=== PATIENT | female | born 1955 | race Caucasian/White ===

== ENCOUNTER 2019-09-04 10:34 | Outpatient (CLI) | payer OTHER, SELFPAY ==
--- NOTE | ~2019-09-04 | MM_ITS ---
EXAMINATION: MM screening [facility] BI w charity HISTORY: Screening mammogram, family history of breast cancer in her mother. TECHNIQUE: Craniocaudal and mediolateral oblique 3-D tomosynthesis images were obtained and synthetic 2-D images were generated. CAD analysis was submitted and interpreted. COMPARISON: 07/03/2018, 12/13/2015, 09/03/2014 BREAST PARENCHYMAL COMPOSITION: There are scattered areas of fibroglandular density. FINDINGS: An intramammary lymph node is noted in the upper outer quadrant of the right breast. There is no evidence of suspicious mass, calcification, or architectural distortion to suggest malignancy i n either breast. There has been no suspicious interval change. IMPRESSION: 1. No mammographic evidence of malignancy. 2. Recommend routine screening mammography in one year. BI-RADS Category 2: Benign finding(s). Reviewed, dictated and finalized at location A. ESSIVE THERAPIST
== END 2019-09-04 10:35 | disposition home or self-care (01) ==
LOC: ANHIMG 10:47
PROVIDERS: PCP Family Medicine; Visit Provider Family Medicine
DX: Z12.31 Encounter for screening mammogram for malignant neoplasm of breast (principal)
CPT/HCPCS: 77063; 77067

== ENCOUNTER 2020-08-21 01:13 | Outpatient (CLI) | payer OTHER, SELFPAY ==
[2020-08-21 18:47] LABS: SARS-CoV-2 RNA PCR Negative
== END 2020-08-21 01:14 | disposition home or self-care (01) ==
LOC: ANHCOVIDDT 01:13
PROVIDERS: PCP Family Medicine; Visit Provider Internal Medicine Gastroenterology
DX: Z01.812 Encounter for preprocedural laboratory examination (principal); Z20.822 Contact with and (suspected) exposure to COVID-19
CPT/HCPCS: C9803; U0003; U0005

== ENCOUNTER 2020-08-24 01:18 | Day surgery (SDC) | payer OTHER, SELFPAY ==
[2020-08-18 14:23] VITALS: BMI 46.5
[2020-08-24 08:13] VITALS: BP 137/78; PULSE 78; RESP 18; TEMP 36.6; O2SAT 97; BMI 46.8
[2020-08-24] MEDS: LACTATED RINGERS 1,000 ML 150 ML IV CONT (08:29)
[2020-08-24 08:32] LABS: Glucose Point of Care 143 (65-105)
--- NOTE | 2020-08-24 09:13 | WPDANESEPPF ---
Anes - Initial Pre Proc Eval Procedure: Operation Date: 08/24/20 09:30 Proposed Procedures p Screening Colonoscopy - Eagle Pascual MD Date/Time: 08/24/20 09:13 Surgeon: Eagle Pascual MD Pre Op Diagnosis: Neoplasm Screening Patient Data Age: 64 Gender: F Height: 5 ft 4 in Weight: 123.8 kg Last Vital Signs Temp 97.9 F 08/24/20 08:13 Pulse 78 08/24/20 08:13 Resp 18 08/24/20 08:13 BP 137/78 08/24/20 08:13 Pulse Ox 97 08/24/20 08:13 Allergies Allergy/AdvReac Type Severity Reaction Status Date / Time ezetimibe Allergy Intermediate Rash Verified 08/24/20 08:11 iodine Allergy Intermediate Hives Verified 08/24/20 08:11 rosuvastatin Allergy Intermediate Heartburn Verified 08/24/20 08:11 Contrast Media Allergy Intermediate HIVES Uncoded 08/24/20 08:11 Home Medications Medication Instructions Recorded Confirmed Type blood sugar diagnostic #100 each 02/11/20 06/17/20 Rx coenzyme Q10 100 mg capsule 100 mg PO DAILY 02/12/20 08/18/20 History aspirin 81 mg tablet,delayed 81 mg PO DAILY #90 tablet 06/16/20 08/18/20 Rx release atenolol 25 mg tablet 25 mg PO DAILY #90 tablet 06/16/20 08/18/20 Rx atorvastatin 80 mg tablet 80 mg PO DAILY #90 tablet 06/16/20 08/18/20 Rx cetirizine 10 mg capsule 10 mg PO DAILY #90 cap 06/16/20 08/18/20 Rx ergocalciferol (vitamin D2) 1,250 1,250 mcg PO WEEKLY #12 cap 06/16/20 08/18/20 Rx mcg (50,000 unit) capsule febuxostat 40 mg tablet 40 mg PO DAILY #90 tablet 06/16/20 08/18/20 Rx pregabalin 75 mg capsule 75 mg PO BID #180 cap 06/16/20 08/18/20 Rx sitagliptin 100 mg-metformin ER 1 tablet PO QPM #90 tablet 06/16/20 08/18/20 Rx 1,000 mg tablet,extended [id number] mp sodium,potassium,mag sulfates 17.5 See Rx Instructions PO .COMPLEX 08/11/20 Rx gram-3.13 gram-1.6 gram oral soln #354 ml fluticasone propionate 2 spray NASAL DAILY PRN 08/18/20 08/18/20 History levothyroxine 112 mcg tablet 112 mcg PO DAILY #90 tablet 08/18/20 08/18/20 Rx tramadol 50 mg PO BID 08/18/20 08/18/20 History furosemide 40 mg tablet 20 mg PO .every other day #90 08/20/20 Rx tablet Laboratory Tests 08/24/20 08:28 POC Capillary Glucose 143 mg/dl H mg/dl (65-105) Patient hx anesthesia problems: none Family hx anesthesia problems: none [facility] Past Medical History Medical History (Updated 08/10/20 @ 11:55 by Debra Rangel RN) Allergies Arthritis Diabetes Headache History of osteomyelitis Hypertension IBS (irritable bowel syndrome) Kidney disease Surgical History Surgical History Acute carpal tunnel syndrome of left wrist Ankle osteomyelitis, left Carpal tunnel syndrome History of hysterectomy History of laminectomy History of total left knee replacement (TKR) History of total right knee replacement (TKR) Family History Family History Mother Family history of hyperthyroidism Other Cerebrovascular accident Diabetes mellitus Family history of arthritis Family history of cardiovascular disease Family history of congestive heart failure Family history of coronary artery disease Family history of glaucoma Family history of gout Family history of malignant neoplasm of male breast Family history of obesity Family history of thyroid disease Hypertension Social History Social History Smoking status: Never smoker Second hand tobacco smoke exposure: No Alcohol intake: never Substance use: never Substance use type: does not use Living arrangements: with family Gender identity (if verbalized by the patient): Female Spiritual care concerns: No Agree to blood products: Yes Anes - Eval Final PreProcedure Day of Procedure 08/24/20 09:13 Patient weight: morbidly obese Heart: regular rate and rhythm Lungs: clear to au
--- NOTE | 2020-08-24 09:35 | PM.HPGS ---
History of Present Illness History of Present Illness Consent: Risks, benefits, and alternatives have been discussed and questions answered. Patient agrees to proceed with procedure. Chief complaint: Neoplasm Screening Narrative: Alva Renteria is a 64 year old female here for first colonoscopy, had + cologuard Review of Systems Constitutional: Constitutional: Denies headache(s) and Denies weakness Eyes: Eyes: Denies blurry vision ENT: Reports Normal hearing present, Denies headache(s) and Denies neck pain Cardiovascular: Cardiovascular: Denies chest pain and Denies dyspnea Respiratory: Respiratory: Denies dyspnea Gastrointestinal: Gastrointestinal: Reports no additional gastrointestinal complaints Genitourinary: Genitourinary: Denies dysuria Musculoskeletal: Musculoskeletal: Denies neck pain Integumentary/Breasts: Skin/Breast: Denies dry skin Neurologic: Reports Normal hearing present, Denies headache(s) and Denies weakness Psychiatric: Psychiatric: Denies anxiety Endocrine: Endocrine: Denies change in body appearance Hematologic/Lymphatic: Hematologic/Lymphatic: Denies easy bleeding Allergic/Immunologic: Allergic/Immunologic: Denies urticaria PMFSH Past Medical History Medical History (Updated 08/10/20 @ 11:55 by Debra Rangel RN) Allergies Arthritis Diabetes Headache History of osteomyelitis Hypertension IBS (irritable bowel syndrome) Kidney disease Surgical History Surgical History Acute carpal tunnel syndrome of left wrist Ankle osteomyelitis, left Carpal tunnel syndrome History of hysterectomy History of laminectomy History of total left knee replacement (TKR) History of total right knee replacement (TKR) Family History Family History Mother Family history of hyperthyroidism Other Cerebrovascular accident Diabetes mellitus Family history of arthritis Family history of cardiovascular disease Family history of congestive heart failure Family history of coronary artery disease Family history of glaucoma Family history of gout Family history of malignant neoplasm of male breast Family history of obesity Family history of thyroid disease Hypertension Social History Social History Smoking status: Never smoker Second hand tobacco smoke exposure: No Alcohol intake: never Substance use: never Substance use type: does not use Living arrangements: with family Gender identity (if verbalized by the patient): Female Spiritual care concerns: No Agree to blood products: Yes Meds Home Medications and Allergies Home Medications Medication Instructions Recorded Confirmed Type blood sugar diagnostic #100 each 02/11/20 06/17/20 Rx coenzyme Q10 100 mg capsule 100 mg PO DAILY 02/12/20 08/18/20 History aspirin 81 mg tablet,delayed 81 mg PO DAILY #90 tablet 06/16/20 08/18/20 Rx release atenolol 25 mg tablet 25 mg PO DAILY #90 tablet 06/16/20 08/18/20 Rx atorvastatin 80 mg tablet 80 mg PO DAILY #90 tablet 06/16/20 08/18/20 Rx cetirizine 10 mg capsule 10 mg PO DAILY #90 cap 06/16/20 08/18/20 Rx ergocalciferol (vitamin D2) 1,250 1,250 mcg PO WEEKLY #12 cap 06/16/20 08/18/20 Rx mcg (50,000 unit) capsule febuxostat 40 mg tablet 40 mg PO DAILY #90 tablet 06/16/20 08/18/20 Rx pregabalin 75 mg capsule 75 mg PO BID #180 cap 06/16/20 08/18/20 Rx sitagliptin 100 mg-metformin ER 1 tablet PO QPM #90 tablet 06/16/20 08/18/20 Rx 1,000 mg tablet,extended [id number] mp sodium,potassium,mag sulfates 17.5 See Rx Instructions PO .COMPLEX 08/11/20 Rx gram-3.13 gram-1.6 gram oral soln #354 ml fluticasone propionate 2 spray NASAL DAILY PRN 08/18/20 08/18/20 History levothyroxine 112 mcg tablet 112 mcg PO DAILY #90 tablet 08/18/20 08/18/20 Rx tramadol 50 mg PO BID 08/18/20 08/18/20 Hist
[2020-08-24 09:57] VITALS: BP 95/51; PULSE 62; RESP 20; O2SAT 94
[2020-08-24 10:07] VITALS: BP 103/58; PULSE 68; RESP 18; O2SAT 95
[2020-08-24 10:17] VITALS: BP 97/65; PULSE 70; RESP 19; O2SAT 97
== END 2020-08-24 10:30 | disposition home or self-care (01) ==
PROVIDERS: PCP Family Medicine; Visit Provider Internal Medicine Gastroenterology
PROC: 0DJD8ZZ Inspection of Lower Intestinal Tract, Via Natural or Artificial Opening Endoscopic (ICD-10-PCS; CPT 45378; principal; 2020-08-24 09:30)
DX: Z12.11 Encounter for screening for malignant neoplasm of colon (principal); R19.5 Other fecal abnormalities; D12.3 Benign neoplasm of transverse colon; D12.4 Benign neoplasm of descending colon; D12.5 Benign neoplasm of sigmoid colon; K63.5 Polyp of colon; K64.8 Other hemorrhoids; E11.9 Type 2 diabetes mellitus without complications; I10 Essential (primary) hypertension; K58.9 Irritable bowel syndrome, unspecified; E66.01 Morbid (severe) obesity due to excess calories; Z68.42 Body mass index [BMI] 45.0-49.9, adult; Z79.82 Long term (current) use of aspirin; Z79.84 Long term (current) use of oral hypoglycemic drugs
CPT/HCPCS: 45385; 88305; J2704; J7120

== ENCOUNTER → 2020-10-11 13:48 | Outpatient (REF) | payer OTHER, SELFPAY | LOC: ANHLAB 13:48 | PROVIDERS: PCP Family Medicine; Visit Provider Nurse Practitioner | DX: L72.0 Epidermal cyst (principal) | CPT/HCPCS: 88304 ==

== ENCOUNTER 2020-12-06 09:33 | Outpatient (CLI) | payer MEDICARE, OTHER, SELFPAY ==
--- NOTE | ~2020-12-06 | MM_ITS ---
EXAMINATION: MM screening [facility] BI w charity HISTORY: Screening TECHNIQUE: Craniocaudal and mediolateral oblique 3-D tomosynthesis images were obtained and synthetic 2-D images were generated. CAD analysis was submitted and interpreted. COMPARISON: Comparison to multiple prior studies sequentially, with oldest reviewed study dated 01/2012. BREAST PARENCHYMAL COMPOSITION: There are scattered areas of fibroglandular density. FINDINGS: There is no evidence of suspicious mass, calcification, or architectural distortion to sugg est malignancy in either breast. There has been no suspicious interval change. IMPRESSION: 1. No mammographic evidence of malignancy. 2. Recommend routine screening mammography in one year. BI-RADS Category 1: Negative Reviewed, dictated and finalized at location A.
== END 2020-12-06 09:34 | disposition home or self-care (01) ==
LOC: ANHIMG 09:39
PROVIDERS: PCP Family Medicine; Visit Provider Family Medicine
DX: Z12.31 Encounter for screening mammogram for malignant neoplasm of breast (principal)
CPT/HCPCS: 77063; 77067

== ENCOUNTER 2021-01-04 11:07 | Outpatient (CLI) | payer MEDICARE, OTHER, SELFPAY ==
--- NOTE | ~2021-01-04 | XR_ITS ---
EXAMINATION: XR foot RT standing 2V, XR foot LT standing 2V DATE: 01/04/2021 11:30 (accession [id number]), 01/04/2021 11:31 (accession [id number]) INDICATION: Arthritis with abnormal neurologic findings in serum. TECHNIQUE: 1. Dorsoplantar and lateral views of the left foot were obtained. 2. Dorsoplantar and lateral views of the right foot were obtained. COMPARISON: 02/15/2016 FINDINGS: Mild bilateral hallux valgus and bunions with mild hypertrophic change at the medial heads of the annel ateral first metatarsals. There is also mild bilateral pes planus. Old healed fractures at the latera l bases of the left and right fifth metatarsals. No acute fractures. Mild to moderate polyarticular o steoarthritis involving multiple joints in the bilateral feet most prominent at the left subtalar and talonavicular joints, bilateral second tarsal metatarsal and bilateral first metatarsophalangeal naima nts. No periarticular erosions to suggest an inflammatory arthritis such as rheumatoid. Moderate-size d bilateral plantar calcaneal spurs and tiny bilateral Achilles calcaneal spurs. IMPRESSION: 1. Bilateral hallux valgus and pes planus with moderate polyarticular osteoarthritis at both feet. 2. Old healed avulsion fractures at the lateral base of the bilateral fifth metatarsals. No acute oss eous abnormality. Reviewed, dictated and finalized at location A. IMPRESSION: 1. Bilateral hallux valgus and pes planus with moderate polyarticular osteoarth ritis at both feet. 2. Old healed avulsion fractures at the lateral base of the bilateral fifth met atarsals. No acute osseous abnormality.
--- NOTE | ~2021-01-04 | XR_ITS ---
EXAMINATION: HAND-ALENA ARTHRITIS 3+VIEWS DATE: 01/04/2021 11:31 INDICATION: Arthritis at the bilateral hands with abnormal immunologic findings in serum. TECHNIQUE: Posteroanterior, lateral, and oblique views of the left and of the right hands as well as a ballcatchers view of both hands were obtained. COMPARISON: None. FINDINGS: Alignment is normal. No fracture. Relatively symmetric pattern of polyarticular osteoarthritis, moder ate severity at the first carpometacarpal joints, mild at multiple predominantly distal interphalange al joints and minimal at the bilateral triscaphe and several metacarpophalangeal joints. Small round lucent lesion with thin sclerotic margins at the bilateral ulnar styloid processes which could repres ent either degenerative subchondral cysts or chronic erosions. No erosions or significant joint space narrowing at the third carpophalangeal joints to elevate suspicion for rheumatoid arthritis. Soft ti ssues are unremarkable. IMPRESSION: 1. Symmetric pattern of polyarticular osteoarthritis of both hands, moderate severity carpometacarpal joints and mild at multiple predominantly distal interphalangeal joints. 2. Small chronic lytic lesions within sclerotic margins at the bilateral ulnar styloid processes whic h could represent other degenerative cystic change or chronic erosions in the setting of either an in flammatory or crystalline arthritis. Reviewed, dictated and finalized at location A. IMPRESSION: 1. Symmetric pattern of polyarticular osteoarthritis of both hands, moderate se verity carpometacarpal joints and mild at multiple predominantly distal interph alangeal joints. 2. Small chronic lytic lesions within sclerotic margins at the bilateral ulnar styloid processes which could represent other degenerative cystic change or chr onic erosions in the setting of either an inflammatory or crystalline arthritis .
== END 2021-01-04 11:08 | disposition home or self-care (01) ==
LOC: ANHIMG 11:16
PROVIDERS: PCP Family Medicine; Visit Provider Internal Medicine
DX: R76.8 Other specified abnormal immunological findings in serum (principal); M18.0 Bilateral primary osteoarthritis of first carpometacarpal joints; M19.042 Primary osteoarthritis, left hand; M19.041 Primary osteoarthritis, right hand; M21.072 Valgus deformity, not elsewhere classified, left ankle; M21.071 Valgus deformity, not elsewhere classified, right ankle; M21.42 Flat foot [pes planus] (acquired), left foot; M21.41 Flat foot [pes planus] (acquired), right foot
CPT/HCPCS: 73130; 73620

== ENCOUNTER 2022-03-15 10:06 | Outpatient (CLI) | payer MEDICARE, OTHER, SELFPAY ==
--- NOTE | ~2022-03-15 | MM_ITS ---
EXAMINATION: MM screening [facility] HISTORY: Screening mammogram, family history of breast cancer in her mother. TECHNIQUE: Craniocaudal and mediolateral oblique 3-D tomosynthesis images were obtained and synthetic 2-D images were generated. CAD analysis was submitted and interpreted. COMPARISON: 12/06/2020, 09/04/2019, 1120 BREAST PARENCHYMAL COMPOSITION: There are scattered areas of fibroglandular density. FINDINGS: An intramammary lymph node is again noted in the upper outer quadrant of the right breast. There is no suspicious mass, calcification, or architectural distortion to suggest malignancy in eith er breast. There has been no suspicious interval change. IMPRESSION: 1. No mammographic evidence of malignancy. 2. Recommend routine screening mammography in one year. BI-RADS Category 2: Benign finding(s). Reviewed, dictated and finalized at location A.
== END 2022-03-15 10:07 | disposition home or self-care (01) ==
PROVIDERS: PCP Family Medicine; Visit Provider Family Medicine
DX: Z12.31 Encounter for screening mammogram for malignant neoplasm of breast (principal)
CPT/HCPCS: 77063; 77067

== ENCOUNTER 2022-04-14 15:18 | Outpatient (CLI) | payer MEDICARE, OTHER, SELFPAY ==
--- NOTE | ~2022-04-14 | US_ITS ---
EXAMINATION: US renal BI DATE: 04/14/2022 15:59 INDICATION: Unspecified hematuria TECHNIQUE: Multiple ultrasound grayscale images of the kidneys were obtained. COMPARISON: 06/21/2018 FINDINGS: The right kidney measures 13.1 x 5.2 x 5.7 cm. The left kidney measures 9.1 x 4.3 x 6.6 cm. The kidne ys demonstrate normal echogenicity. There is no hydronephrosis in either kidney. No stones identifie d. The bladder is normal. IMPRESSION: 1. Normal kidneys without hydronephrosis. Reviewed, dictated and finalized at location A.
== END 2022-04-14 15:19 | disposition home or self-care (01) ==
PROVIDERS: PCP Family Medicine; Referring Provider Internal Medicine Nephrology; Visit Provider Family Medicine
DX: R31.9 Hematuria, unspecified (principal)
CPT/HCPCS: 76775

== ENCOUNTER 2022-06-19 08:27 | Outpatient (CLI) | payer MEDICARE, OTHER, SELFPAY ==
--- NOTE | ~2022-06-19 | DEXA_ITS ---
Bone Density Report Name: JC HORTON Age: 66 Sex: Female Ethnicity: White Date of : 1955 Indication: hyperparathyroidism; height loss; prior fracture; hysterectomy; postmenopausal Referring Provider: MOHINDER, MIRIAM Guerra Study: Bone densitometry was performed. Exam Date: June 19, 2022 Accession number: [id number] Bone Density: Region BMD T-score Z-score Classification AP Spine(L1, L3) 1.026 0.1 1.9 Normal Femoral Neck (Left) 0.674 -1.6 0.0 Osteopenia Total Hip (Left) 0.898 -0.4 1.0 Normal Femoral Neck (Right) 0.631 -2.0 -0.4 Osteopenia Total Hip (Right) 0.860 -0.7 0.6 Normal Total Hip Mean 0.879 -0.6 0.8 Normal World Health Organization criteria for BMD impression classify patients as: Normal (T-score at or above -1.0), Osteopenia (T-score between -1.0 and -2.5), or Osteoporosis (T-score at or below -2.5). 10-year Fracture Risk(1): Major Osteoporotic Fracture 15% Hip Fracture 2.0% Reported Risk Factors: [place] (), Neck BMD=0.631, BMI=47.3, previous fracture Input outside FRAX(R) limits. Adjusted to:Omqvwt=299 kg (1) FRAX(R) Version 3.08. Fracture probability calculated for an untreated patient. Fracture probability may be lower if the patient has received treatment. Previous Exams: Region Exam Age BMD T-score BMD Change BMD Change Date g/cm2 vs Baseline vs Previous Total Hip(Left) 06/19/2022 66 0.898 -0.4 -0.068 (-7.0%) -0.068 (-7.0%) 07/03/2018 62 0.966 0.2 Total Hip(Right) 06/19/2022 66 0.860 -0.7 -0.150 (-14.8% -0.150 (-14.8% 07/03/2018 62 1.010 0.6 *Denotes significance at 95% confidence level, LSC for Total Hip = 0.027 g/cm2 # Denotes dissimilar scan types or analysis methods Clinical Information Provided by Patient: Has had a low trauma fracture Has used the following medications: Vitamin D Has the following medical conditions: Hyperparathyroidism, Hysterectomy Patient maximum height was 65 Menopause Age: 45 No regular weight bearing exercise Does not regularly consume dairy products Onset of menses at age 12 Number of children 1 Impression: The patient has low bone mass, based on the Right Femoral Neck T-score. The patient has an estimated ten-year risk of hip fracture of 2% and an estimated ten-year risk of major fracture of 15%, based on the WHO FRAX algorithm. The patient has risk factors, including: previous fracture. The BMD for the Total Hip(Right) decreased, changing by -14.8% since the las
== END 2022-06-19 08:28 | disposition home or self-care (01) ==
LOC: ANHIMG 08:28
PROVIDERS: PCP Family Medicine; Visit Provider Family Medicine
DX: E21.0 Primary hyperparathyroidism (principal); Z78.0 Asymptomatic menopausal state; M85.852 Other specified disorders of bone density and structure, left thigh; M85.851 Other specified disorders of bone density and structure, right thigh
CPT/HCPCS: 77080

== ENCOUNTER 2022-07-04 14:26 | Outpatient (CLI) | payer MEDICARE, OTHER, SELFPAY ==
[2022-07-04 15:26] LABS: SARS-CoV-2 RNA PCR Positive
== END 2022-07-04 14:27 | disposition home or self-care (01) ==
PROVIDERS: PCP Family Medicine; Visit Provider Physician Assistant Medical
DX: U07.1 COVID-19 (principal); J06.9 Acute upper respiratory infection, unspecified
CPT/HCPCS: U0003; U0005

== ENCOUNTER 2023-06-30 09:36 | Outpatient (CLI) | payer MEDICARE, OTHER, SELFPAY ==
--- NOTE | ~2023-06-30 | MM_ITS ---
EXAMINATION: MM screening [facility] w [facility] HISTORY: Screening mammogram TECHNIQUE: Craniocaudal and mediolateral oblique 3-D tomosynthesis images were obtained and synthetic 2-D images were generated. CAD analysis was submitted and interpreted. COMPARISON: 03/15/2022, 12/06/2020, 09/04/2019 bilateral screening mammogram examinations BREAST PARENCHYMAL COMPOSITION: There are scattered areas of fibroglandular density. FINDINGS: Occasional bilateral benign calcifications. Stable posterior upper outer quadrant right tati ast intramammary lymph node. There is no evidence of suspicious mass, calcification, or architectural distortion to suggest malignancy in either breast. There has been no suspicious interval change. IMPRESSION: 1. No mammographic evidence of malignancy. 2. Recommend routine screening mammography in one year. BI-RADS Category 2: Benign finding(s). Reviewed, dictated and finalized at location A. OSOFT ARCHITECT
== END 2023-06-30 09:37 | disposition home or self-care (01) ==
PROVIDERS: PCP Family Medicine; Visit Provider Nurse Practitioner Family
DX: Z12.31 Encounter for screening mammogram for malignant neoplasm of breast (principal)
CPT/HCPCS: 77063; 77067

== ENCOUNTER 2024-09-25 13:57 | Outpatient (CLI) | payer MEDICARE, OTHER, SELFPAY ==
--- NOTE | ~2024-09-25 | MM_ITS ---
EXAMINATION: MM screening stone BI w [facility] HISTORY: Screening TECHNIQUE: Craniocaudal and mediolateral oblique 3-D tomosynthesis images were obtained and synthetic 2-D images were generated. CAD analysis was submitted and interpreted. COMPARISON: Comparison to multiple prior studies sequentially, with oldest reviewed study dated 04/2016. BREAST PARENCHYMAL COMPOSITION: Not dense: There are scattered areas of fibroglandular density. FINDINGS: There is no evidence of suspicious mass, calcification, or architectural distortion to sugg est malignancy in either breast. There has been no suspicious interval change. IMPRESSION: 1. No mammographic evidence of malignancy. 2. Recommend routine screening mammography in one year. BI-RADS Category 1: Negative Reviewed, dictated and finalized at location B. DRAWER
--- OUTSIDE RECORDS SUMMARY | 2024-09-25 14:02 | XMS_ITS | Clinical Summary ---
Author Organization [facility] Address [address] [place] [address] Care Team Providers Care Wood Type Cutter Name Role Phone Aura Livingston [facility] Primary Care Provider [phone] Allergies Active Allergy Reactions Criticality Noted Date Comments Rosuvastatin Other (see comment) Medium 03/27/2019 bad heartburn Ezetimibe Hives,Rash Low Iodine Hives Medium 03/27/2019 Empagliflozin Other (see comment) 08/08/2023 UTI Medications acetaminophen CR 650 MG Tab CR 8 hr tablet 02/12/2017 Acti ve atenolol 50 MG tablet 07/21/2018 Active atorvastatin 80 MG tablet 01/18/2015 Active Cetirizine HCl 10 MG Cap 02/12/2017 Active Coenzyme Q10 (COQ10) 100 MG Cap 05/22/2016 Active diphenhydrAMINE 25 MG capsule 02/12/2017 Activ e vitamin D2, ergocalciferol, 79697 UNITS capsule 05/22/2016 Active febuxostat (ULORIC) 40 MG tablet 01/18/2015 Active furosemide 40 MG tablet 01/18/2015 Active levothyroxine 112 MCG tablet 01/18/2015 Acti ve lisinopril 10 MG tablet Take 10 mg by mouth. 10/23/2018 Active LYRICA 75 MG capsule 1 03/05/2019 Active sitaGLIPtin-met FORMIN ER 100-1000 MG TABLET SR 24 HR 24 hr tablet 01/18/2015 Active traMADol 50 MG tablet 06/18/2017 Active VASCEPA 1 g capsule 08/21/2019 Active fluticasone propionate 50 MCG/ACT nasal spray 1 spray by Nasal route. Active aspirin EC 81 MG tablet Take 1 tablet (81 mg total) by mouth daily. Active nitrofurantoin, macrocrystal-mo nohydrate, (MACROBID) 100 MG capsule 03/13/2022 Active allopurinol (ZYLOPRIM) 300 MG tablet Take 1 tablet (300 mg total) by mouth daily. Active dulaglutide (TRULICITY) 3 MG/0.5ML injection Inject 3 mg into the skin once a week. Active glimepiride (AMARYL) 1 MG tablet Take 1 tablet (1 mg total) by mouth every morning before breakfast. Active Active Problems Problem Noted Date Diagnosed Date Chronic kidney disease, stag e 3 (moderate) ([facility]) 06/17/2018 Monoclonal gammopathy of unknown significance (M RONALDO) 03/21/2018 Essential (primary) hypertension 01/18/2015 Hyperlipidemia 01/18/2015 Pain in joint 01/18/2015 Type 2 diabetes mellitus wit hout complication ([facility]) 01/18/2015 Immunizations Name Administration Dates Next Due Dtap (Generic) 11/09/2020 Influenza (FluMist) 05/22/2012 Family History Medical History Relation Comments No Known Problems Father Clotting Disorder Maternal Grandfather Heart Disease Maternal Grandfather Hypertension Maternal Grandfather Stroke Maternal Grandmother Cancer Mother Dementia Mother Diabetes Mother Heart Disease Mother Hypertension Mother Stroke Mother No Known Problems Paternal Grandfather No Known Problems Paternal Grandmother Relation Status Comments Father Maternal Grandfather Maternal Grandmother Mother Paternal Grandfather Paternal Grandmother Social History Tobacco Use Types Packs/Day Years Used Date Smoking Tobacco: Never Smokeless Tobacco: Never Tobacco Cessation:Counseling Given: No Alcohol Use Standard Drinks/Week Comments No 0 (1 standard drink = 0.6 oz pur e alcohol) AUDIT-C Answer Date Recorded Frequency of Alcohol Consumption Never 03/27/2019 Average Number of Drinks Not on file 019 Frequency of Binge Drinking Not on file 03/07 PHQ-2 Answer Date Recorded Patient Health Questionnaire-2 Score 0 08/08/2023 Comments No Sex and Gender Information Value Date Recorded Sex Assigned at Female 03/27/2019 1:23 PM CDT Legal Sex Female 7:12 PM CDT Gender Identity Female 03/27/2019 1:23 PM CDT Sexual Orientation Straight 05/30/2021 3: 08 PM CDT Last Filed Vital Signs Vital Sign Reading Time Taken Comments Blood Pressure 107/74 08/08/2023 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 Pulse 96 08/08/2023 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 Temperature - - Respiratory Rate 16 03/15/2022 2:00 PM CDT Oxygen Saturation 93% 08/08/2023 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 Inhaled Oxygen Concentration - - Weight 128.8 kg (284 lb) 08/08/2023 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 Height 162.6 cm (5' 4 ) 03/23/2022 3:30 PM CDT Body Mass Index 48.75 03/23/2022 3:30 PM CDT Plan of Treatment Health Maintenance Due Date Last Done Comments Colorectal Cancer Screening Colonoscopy (10 Years) 1955 Kidney Health Evaluation 1955 Lipid Panel 1955 Pneumococcal Vaccine: 65+ Years (1 of 2 - PCV) 11/25/1961 Diabetes: Retinopathy Eye Exam 11/25/1973 Hepatitis C 11/25/1973 Mammogram Screening 1995 Zoster Vaccines (1 of 2) 11/25/2005 RSV Immunization or 60+ Years (1 - Risk 60-74 years 1-dose series) 2015 Annual Medicare Wellness Visit 11/25/2020 Dexa Scan (General) 11/25/2020 Hemoglobin A1C 09/25/2021 03/25/2021, 06/16/2020 COVID-19 Vaccine (1 - 2023-2 5 season) 2024 Influenza Adult (#1) 2024 05/22/2012 DTaP, Tdap and Td Vaccines ( 2 - Tdap) 11/09/2030 11/09/2020 Meningococcal B Vaccine Aged Out No l onger eligible based on patient's age to complete this topic Meningococcal Vaccine Aged Out No mauricio kim eligible based on patient's age to complete this topic RSV Immunizations Under 20 Months Aged Out No longer eligible b ased on patient's age to complete this topic Procedures Procedure Name Priority Date/Time Associated Diagnosis Comments HEMOGLOBIN, GLYCOSYLATED Routine 03/25/2021 from Last 3 Months or Most Recently Relevant to Health Maintenance Results * HEMOGLOBIN, GLYCOSYLATED (03/25/2021) HGB A1C 7.4 % 03/25/2021 us Doc [facility] LABORATORY Final Result from Last 3 Months or Most Recently Relevant to Health Maintenance Insurance MEDICARE [facility] Care Teams Wood Type Cutter Relationship Specialty Start Date End Date Aura Livingston FNP [address] [place] [id number] PCP - General Nurse Practitioner Family 07/24/23
--- OUTSIDE RECORDS SUMMARY | 2024-09-25 14:02 | XMS_ITS | Clinical Summary ---
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 Gender Identity Not on file Sexual Orientation Not on file Plan of Treatment Health Maintenance Due Date Last Done Comments DEXA Bone Density 1955 Hepatitis C Virus (HCV) Screening 1955 TdaP Immunization 1955 Colonoscopy 11/25/2000 Colorectal Cancer Screening 11/25/2000 Cologuard 11/25/2005 Immunochemical Fecal Occult Blood 11/25/2005 Mammogram 11/25/2005 Pneumococcal Immunization (5 0+ years) (1 of 1 - PCV) 11/25/2005 Zoster Immunization (1 of 2) 11/25/2005 Influenza Immunization (#1) 2024 SARS-COV-2 Immunization ( - 2023- season) 2024 Respiratory Syncytial Virus (RSV) Immunization (Adult) (1 - 1-dose 75+ series) 11/25/2030 Hepatitis B Immunization Aged Out No longer eligible based on patient's age to complete this topic Meningococcal Immunization (ACWY) Aged Out No longer eligible based on patient's age to complete this topic Rotavirus Immunization Aged Out No lo nger eligible based on patient's age to complete this topic
--- OUTSIDE RECORDS SUMMARY | 2024-09-25 14:02 | XMS_ITS | Continuity of Care Document ---
Author Organization [facility] Address [address] [place] [address] Phone Care Team Providers Care Starch And Prosize Mixer Name Role Phone Loc Schilling MD Unavailable Unavailable Procedures Procedure Date Echocardiography, transthoracic, real-ti me with im Advance Directives Directive Yes / No Effective Date File Name No Information Encounters Encounter Description Practice Location Reason(s) For Visit Diagnoses Date Provider Providers Copied on Encounter [facility], [address], [place], [place], [id number], [place] tel:[phone] [facility] Inpt No Information 3 Tonie Monterroso. [address] , [place], [place], [address] , [place]. tel:[phone] Referring Provider: Shaheed Jernigan, [address], [place], [address]. tel:[phone] Family History Family Member Type Diagnosis Age At Onset No Information Payers Payer name Insurance type Covered libertarian ID Authoriza tion(s) Medicare Claims Admin [id number] Wps For Life [id number] Social History Type Description Quantity Date Captured Comments Sex Female Smoking Status No Information Chief Complaint And Reason For Visit No Information History Of Present Illness Encounter Date Complaint History Of Prese nt Illness No Information Instructions Date Instruction Additional Infor mation No Information Assessments Type Assessment Date No Information
--- OUTSIDE RECORDS SUMMARY | 2024-09-25 14:02 | XMS_ITS | Continuity of Care Document ---
Author Name [facility] Organization [facility] Care Team Providers Care Stone Driller Name Role Phone [facility] Unavailable Unavailable Medications Combined list of outpatient medications from Department of Defense and Veterans Affairs facilities.Medications provided include 1) outpatient medications from the last 15 months, and 2) patient-reported medications. Medication Details Route Status Patient Instructions Prescription Expires Prescription Number Last Dispense Date Ordering Provider Order Date Order Qty Source Allopurinol (Alloprim) Tablet 300 mg Oral Take with plenty of water.Ta ke or use exactly as directed .May cause drowsine ss/dizzi ness. Active 11/18/2024 [id number] 4 2023 90 [employer] ([facility]) Allopurinol (Alloprim) Tablet 300 mg Oral Take with plenty of water.Ta ke or use exactly as directed .May cause drowsine ss/dizzi ness. 08/26/2024 [id number] 4 2023 90 [employer] [employer] [facility] allopurinol 300 mg tablet See Instruct ions, # 90 EA, 1 total refill(s ), Hard Stop Ordered 05/20/2025 90.0 Ambul at ory Pharmac y allopurinol 300 mg tablet 600 mg, Oral, Daily, # 90 EA, 1 total refill(s ), Hard Stop Oral (given by mouth) Discont inued 06/03/2024 90.0 Ambulat ory Pharmac y amoxicillin 500 mg capsule 2000 mg, Oral, # 8 EA, 1 total refill(s ), Hard Stop Oral (given by mouth) Ordered 02/17/2025 8.0 Ambul at ory Pharmac y AREXVY (respirator y syncytial virus vacc. antigen/AS0 1E adjuvant/PF ), 120MCG/0.5, KIT, INTRAMUSC, GLAXOSMITHK LINE, 1 ea. KIT Active [id number] 3 2022 1 Pharmac y Data Transac tion Service Facilit y aspirin 81 mg oral delayed release tablet TAKE ONE TABLET DAILY, # 90 EA, 1 total refill(s ), Acute Complet ed 01/17/2023 90.0 Ambulat ory Pharmac y ASPIRIN EC (U/D) 81 MG ORAL TBEC Take with food/mil Zaida w whole. Active 11/20/2024 [id number] 4 [address] [place] [address]) aspirin EC 81 mg tablet See Instruct ions, # 90 EA, 1 total refill(s ), Hard Stop Ordered 05/20/2025 90.0 Ambul at ory Pharmac y aspirin EC 81 mg tablet 81 mg, Oral, Daily, # 90 EA, 1 total refill(s ), Hard Stop Oral (given by mouth) Complet ed 03/05/2024 90.0 Ambulat ory Pharmac y aspirin EC 81 mg tablet 81 mg, Oral, Daily, # 90 EA, 1 total refill(s ), Hard Stop Oral (given by mouth) Discont inued 06/03/2024 90.0 Ambulat ory Pharmac y atenolol (U/D) 25 MG ORAL TAB May cause drowsine ss.Be careful if taking OTCs.Rob e or use exactly as directed .Do not take if . Active 11/18/2024 [id number] 4 [address] [place] [address]) atenolol (U/D) 25 MG ORAL TAB May cause drowsine ss.Be careful if taking OTCs.Rob e or use exactly as directed .Do not take if . 08/26/2024 [id number] [address] [place] [address] atenolol 25 mg tablet See Instruct ions, # 90 EA, 1 total refill(s ), Hard Stop Ordered 05/20/2025 90.0 Ambul at ory Pharmac y atenolol 25 mg tablet 25 mg, Oral, Daily, # 90 EA, 1 total refill(s ), Hard Stop Oral (given by mouth) Discont inued 06/03/2024 90.0 Ambulat ory Pharmac y atorvastati n (U/D) 80 MG ORAL TAB Take with food/mil k.Take or use exactly as directed .Obtain advice for OTCs.Do not take if .Avoid grapefru it and grapefru it juice. Active 11/18/2024 [id number] 4 2023 90 [facility] ([facility]) atorvastati n (U/D) 80 MG ORAL TAB Take with food/mil k.Take or use exactly as directed .Obtain advice for OTCs.Do not take if .Avoid grapefru it and grapefru it juice. 08/26/2024 [id number] 4 [address] [place] [address] atorvastati n 80 mg tablet See Instruct ions, # 90 EA, 1 total refill(s ), Hard Stop Ordered 05/20/2025 90.0 Ambul at ory Pharmac y atorvastati n 80 mg tablet 80 mg, Oral, Daily, # 90 EA, 1 total refill(s ), Hard Stop Oral (given by mouth) Discont inued 06/03/2024 90.0 Ambulat ory Pharmac y BD UF Micro pen needle 32g 6mm [100EA] See Instruct ions, # 100 EA, 1 total refill(s ), Hard Stop Ordered 07/16/2025 100.0 Ambul at ory Pharmac y BOOSTRIX TDAP (DIPHTH,PER TUSS(ACELL) ,TET VAC), 2.5-8-5/.5, SYRINGE, INTRAMUSC, [employer] LINE, 0.5 ml SYRINGE Cancele d [id number] : 2022 0 Pharmac y Data Transac tion Service Facilit y CEPHALEXIN (CEPHALEXIN MONOHYDRATE ), 500MG, CAPSULE, ORAL, LUPIN PHARMACEU, 500 ea. BOTTLE Active [id number] 4 2023 40 Pharmac y Data Transac tion Service Facilit y CETIRIZINE (U/D) 10 MG ORAL TAB May cause drowsine ss.Obtai n advice for OTCs. Active 11/18/2024 [id number] 4 [address] [place] [address]) CETIRIZINE (U/D) 10 MG ORAL TAB May cause drowsine ss.Obtai n advice for OTCs. 08/26/2024 [id number] 4 [address] [place] [address] cetirizine 10 mg tablet See Instruct ions, # 90 EA, 1 total refill(s ), Hard Stop Ordered 05/20/2025 90.0 Ambul at ory Pharmac y cetirizine 10 mg tablet 10 mg, Oral, Daily, # 90 EA, 1 total refill(s ), Hard Stop Oral (given by mouth) Discont inued 06/03/2024 90.0 Ambulat ory Pharmac y doxycycline hyclate 100 mg capsule 100 mg, Oral, BID, # 20 EA, 0 total refill(s ), Hard Stop Oral (given by mouth) Complet ed 06/10/2024 20.0 Ambulat ory Pharmac y Dulaglutide 6 mg/mL, Injection, 0.5mL Autoinjecto r refriger ate Active 11/18/2024 [id number] 4 [address] [place] [address]) Dulaglutide 6 mg/mL, Injection, 0.5mL Autoinjecto r refriger ate 08/27/2024 [id number] 4 [address] [place] [address] Dulaglutide 6 mg/mL, Injection, 0.5mL Autoinjecto r refriger ate 07/24/2024 [id number] 3 [address] [place] [address]) Ergocalcife rol (Vitamin D Eq.) Capsule Conventiona l 1.25 mg Oral Active 11/18/2024 [id number] 4 [address] [place] [address]) Ergocalcife rol (Vitamin D Eq.) Capsule Conventiona l 1.25 mg Oral 08/26/2024 [id number] 4 [address] [place] [address] ergocalcife rol 1.25 mg (50,000 intl units) oral capsule TAKE ONE CAPSULE BY MOUTH EVERY WEEK DIRECTED , # 12 EA, 1 total refill(s ), Acute Complet ed 07/10/2023 12.0 Ambulat ory Pharmac y ergocalcife rol 1.25 mg (50,000 units) capsule See Instruct ions, # 13 EA, 2 total refill(s ), Hard Stop Ordered 05/20/2025 13.0 Ambul at ory Pharmac y ergocalcife rol 1.25 mg (50,000 units) capsule See Instruct ions, Oral, # 13 EA, 2 total refill(s ), Hard Stop Oral (given by mouth) Discont inued 06/03/2024 13.0 Ambulat ory Pharmac y fluconazole 150 mg tablet See Instruct ions, # 2 EA, 0 total refill(s ), Hard Stop Complet ed 07/11/2024 2.0 Ambulat ory Pharmac y freestyle lite (glucose) test strip [50EA] See dose instruct ions in comments , # 100 EA, 2 total refill(s ), Acute Complet ed 07/10/2023 100.0 Ambulat ory Pharmac y freestyle lite (glucose) test strip [50EA] See Instruct ions, # 100 EA, 3 total refill(s ), Hard Stop Ordered 08/13/2025 100.0 Ambul at ory Pharmac y FUROSEMIDE (U/D) 40 MG ORAL TAB Take orange juice or banana.A void exposure to sun.Take or use exactly as directed . 08/26/2024 [id number] 4 2023 90 [facility] furosemide 40 mg oral tablet TAKE ONE TABLET BY MOUTH EVERY MORNING, # 90 EA, 1 total refill(s ), Acute Complet ed 07/10/2023 90.0 Ambulat ory Pharmac y furosemide 40 mg tablet See Instruct ions, # 90 EA, 1 total refill(s ), Hard Stop Ordered 05/20/2025 90.0 Ambul at ory Pharmac y furosemide 40 mg tablet 40 mg, Oral, every morning, # 90 EA, 1 total refill(s ), Hard Stop Oral (given by mouth) Discont inued 06/03/2024 90.0 Ambulat ory Pharmac y GLIMEPIRIDE 1 MG ORAL TAB Do not drink alcohol. Avoid exposure to sun.Take or use exactly as directed . Active 11/25/2024 [id number] 4 [address] [place] [address] [facility] ([facility]) GLIMEPIRIDE 1 MG ORAL TAB Do not drink alcohol. Avoid exposure to sun.Take or use exactly as directed . Active 11/18/2024 [id number] 4 [address] [place] [address] [facility] ([facility]) GLIMEPIRIDE 1 MG ORAL TAB Do not drink alcohol. Avoid exposure to sun.Take or use exactly as directed . 08/26/2024 [id number] 4 [address] [place] [address] glimepiride 1 mg tablet See Instruct ions, # 180 EA, 1 total refill(s ), Hard Stop Ordered 05/20/2025 180.0 Ambul at ory Pharmac y glimepiride 1 mg tablet 1 mg, Oral, BID, # 180 EA, 1 total refill(s ), Hard Stop Oral (given by mouth) Discont inued 02/26/2024 180.0 Ambulat ory Pharmac y glimepiride 2 mg oral tablet *NOTE DOSE* TAKE ONE-HALF TABLET BY MOUTH EVERY MORNING *ADMINIS TER WITH BREAKFAS T*, # 45 EA, 1 total refill(s ), Acute Discont inued 02/27/2023 45.0 Ambulat ory Pharmac y glimepiride 2 mg tablet 2 mg, # 45 EA, 1 total refill(s ), Hard Stop Discont inued 11/20/2023 45.0 Ambulat ory Pharmac y glucose test strip (freestyle lite) USE DAILY DIRECTED , # 100 EA, 3 total refill(s ), Acute Complet ed 01/17/2023 100.0 Ambulat ory Pharmac y IRX: Pregablin 75 mg/Placebo ([id number]) Capsule Conventiona l Oral Do not drink alcohol. May cause drowsine ss/dizzi ness.May impair driving. Check with your doctor before becoming . 05/17/2024 [id number] 4 [address] [place] [address] [facility] ([facility]) IRX: Pregablin 75 mg/Placebo ([id number]) Capsule Conventiona l Oral Do not drink alcohol. May cause drowsine ss/dizzi ness.May impair driving. Check with your doctor before becoming . 02/23/2024 [id number] 4 [address] [place] [address] Lantus SoloStar glargine 100 units/mL [3mL] 10 unit(s), SubCutan eous, every evening, # 15 mL, 0 total refill(s ), Hard Stop SubCut aneous (under the skin) Ordered 11/22/2024 15.0 Ambul at ory Pharmac y levothyroxi ne (Synthroid) 112 mcg tablet See Instruct ions, # 90 EA, 1 total refill(s ), Hard Stop Ordered 05/20/2025 90.0 Ambul at ory Pharmac y levothyroxi ne (Synthroid) 112 mcg tablet 112 mcg, Oral, Daily, # 90 EA, 1 total refill(s ), Hard Stop Oral (given by mouth) Discont inued 06/03/2024 90.0 Ambulat ory Pharmac y Levothyroxi ne Sodium (Levothroid ) Tablet 112 mcg Oral Take on empty stomach. Take with plenty of water.Be careful if taking OTCs.Rob e or use exactly as directed . Active 11/18/2024 [id number] 4 [address] [place] [address] [facility] ([facility]) Levothyroxi ne Sodium (Levothroid ) Tablet 112 mcg Oral Take on empty stomach. Take with plenty of water.Be careful if taking OTCs.Rob e or use exactly as directed . 08/26/2024 [id number] 4 [address] [place] [address] Group nitrofurant oin macrocrysta l monohydrate 100 mg cap See Instruct ions, Oral, # 10 EA, 0 total refill(s ), Hard Stop Oral (given by mouth) Complet ed 07/14/2024 10.0 Ambulat ory Pharmac y pregabalin 75 mg capsule See Instruct ions, # 180 EA, 1 total refill(s ), Hard Stop Ordered 11/16/2024 180.0 Ambul at ory Pharmac y pregabalin 75 mg capsule 75 mg, Oral, BID, # 180 EA, 1 total refill(s ), Hard Stop Oral (given by mouth) Complet ed 05/17/2024 180.0 Ambulat ory Pharmac y pregabalin 75 mg capsule 75 mg, Oral, BID, # 180 EA, 1 total refill(s ), Hard Stop Oral (given by mouth) Discont inued 11/20/2023 180.0 Ambulat ory Pharmac y PREVNAR 20 (pneumococc al 20-valent conjugate vaccine (Diphtheria crm)/PF), 0.5 ML, SYRINGE, INTRAMUSC, WYETH/PFIZE R, .5 ml SYRINGE Active [id number] 3 2022 0.5 Pharmac y Data Transac tion Service Facilit y SHINGRIX (varicella- zoster virus glycoprotei n E,rec/AS01B adjuvant/PF ), 50 MCG/0.5, KIT, INTRAMUSC, Innov[employer] LINE, 1 ea. KIT Cancele d [id number] : 2022 0 Pharmac y Data Transac tion Service Facilit y SULFAMETHOX AZOLE-TRIME THOPRIM (SULFAMETHO XAZOLE/TRIM ETHOPRIM), 800-160MG, TABLET, ORAL, AUROBINDO PHARM, 500 ea. BOTTLE Active [id number] 2023 20 Pharmac y Data Transac tion Service Facilit y traMADol 50 mg tablet 50 mg, Oral, every 12 hr, # 180 EA, 0 total refill(s ), Hard Stop Oral (given by mouth) Complet ed 09/02/2023 180.0 Ambulat ory Pharmac y TRULICITY (dulaglutid e), 3 MG/0.5ML, PEN INJCTR, SUBCUT, [employer] .5 ml SYRINGE Cancele d [id number] : 2023 0 Pharmac y Data Transac tion Service Facilit y TRULICITY (dulaglutid e), 3 MG/0.5ML, PEN INJCTR, SUBCUT, [employer] .5 ml SYRINGE Active [id number] 4 2023 2 Pharmac y Data Transac tion Service Facilit y TRULICITY (dulaglutid e), 3 MG/0.5ML, PEN INJCTR, SUBCUT, [employer] .5 ml SYRINGE Active [id number] 4 2023 2 Pharmac y Data Transac tion Service Facilit y Trulicity Pen 1.5 mg/0.5 mL [4EA=2mL] See Instruct ions, 0, # 2 mL, 5 total refill(s ), Hard Stop Discont inued 07/31/2023 2.0 Ambulat ory Pharmac y Trulicity Pen 3 mg/0.5 mL [4EA=2mL] See Instruct ions, # 2 mL, 5 total refill(s ), Hard Stop Notes: refriger ate Ordered 05/20/2025 2.0 Ambul at ory Pharmac y Trulicity Pen 3 mg/0.5 mL [4EA=2mL] See Instruct ions, # 2 mL, 5 total refill(s ), Hard Stop Notes: refriger ate Discont inued 05/08/2024 2.0 Ambulat ory Pharmac y Allergies, Adverse Reactions, Alerts Combined list of allergies from Department of Defense and Veterans Affairs facilities. It does not include entries that were removed or entered in error. Substance Category Reaction Severity Reaction type Status Date Reported Comments Source No Known Allergies Drug allergy (disorder) active 09/01/2010 [facility] ([facility]) Immunizations Combined list of available immunizations from the Department of Defense and Veterans Affairs facilities. Immunization Series Date Given Administered By Site Reaction Lot Number CVX Code Drug Punchboard Inserter Status Comments Source Tdap 2022 () Not Given Tdap DoD zoster recombinant 2022 () Not Given zoster recombina nt DoD Pneumococcal conjugate PCV20, polysaccharid e [id number] conjugate, adjuvant, PF 2022 () Not Given Pneumococ brian conjugate PCV20, polysacch aride [id number] conjugate , adjuvant, PF DoD influenza, high-dose, quadrivalent 2020 ALUL, () Not Given influenza , high-dose , quadrival ent DoD COVID-19, mRNA, LNP-S, PF, 30 mcg/0.3 mL dose 2020 ALUL, PT PAL NV (PFR) Not Given COVID-19, mRNA, LNP-S, PF, 30 mcg/0.3 mL dose DoD Procedures Combined list of: 1) Procedures from Department of Veterans Affairs facilities going back up to thelast 18 months, not all [place] non-surgical procedures are included; 2) All procedures from the Department of Defense facilities. Procedure Procedure Type Code Date Perfomer Comments Sourc e No data available for this section Ambulatory P harmacy Social History Combined list of available smoking, tobacco, and other social history from Department of Defense and Veterans Affairs facilities. Social History Type Response Date Comment Sourc e This section is an empty social history section. DoD Assessment and Plan Combined list of future care activities from Department of Defense and Veterans Affairs facilities (e.g., assessment and plan notes, appointments, orders, and referrals). Additional future care activities may be listed in the Plan of Care section. Result Assessment and Plan Date Source Assessment and Plan No data available for this section 09/25/2024 Ambulatory Pharmacy Functional Status Combined list of recent functional and cognitive assessments recorded at Department of Defense and Veterans Affairs ([place]).VA Functional [place] Measurement (FIM) Scale: 1 = Total Assistance (Subject = 0% +), 2 = Maximal Assistance (Subject = 25% +), 3 = Moderate Assistance (Subject = 50% +), 4 = Minimal Assistance (Subject = 75% +), 5 = Supervision, 6 = Modified [place] (Device), 7 = Complete [place] (Timely, Safely). Assessment Date/Time Source Assessment Type Assessment Skill Assessment Score Assessment Details No data available for this section
== END 2024-09-25 13:58 | disposition home or self-care (01) ==
LOC: ANHIMG 13:58
PROVIDERS: PCP Nurse Practitioner Family; Visit Provider Nurse Practitioner Family
DX: Z12.31 Encounter for screening mammogram for malignant neoplasm of breast (principal)
CPT/HCPCS: 77063; 77067

== ENCOUNTER 2024-10-24 00:18 | Day surgery (SDC) | payer MEDICARE, OTHER, SELFPAY ==
[2024-10-20 12:33] VITALS: BMI 46.3
--- OUTSIDE RECORDS SUMMARY | 2024-10-24 00:26 | XMS_ITS | Clinical Summary ---
Author Organization [facility] Address [address] [place] [address] Care Team Providers Care Sample Washer Name Role Phone Aura Livingston [facility] Primary Care Provider [phone] Allergies Active Allergy Reactions Criticality Noted Date [...] capsule 02/12/2017 Activ e vitamin D2, ergocalciferol, 04255 UNITS capsule 05/22/2016 Active febuxostat (ULORIC) 40 [...] Noted Date Diagnosed Date Chronic kidney disease, stage 3 (moderate) 06/17 Monoclonal gammopathy of unknown significance ([facility]) 03/21/2018 Essential (primary) hypertension 01/18/2015 Hyperlipidemia 01/18/2015 Pain in joint 01/18/2015 Type 2 diabetes mellitus wit hout complication ([facility]) 01/18/2015 Immunizations Name Administration Dates Next Due [...] Comments Blood Pressure 107/74 08/08/2023 10:28 AM ELECTRIC SHIPYARD OPERATOR Pulse 96 08/08/2023 10:28 AM ELECTRIC SHIPYARD OPERATOR Temperature - - Respiratory Rate 16 03/15/2022 2:00 PM CDT Oxygen Saturation 93% 08/08/2023 10:28 AM ELECTRIC SHIPYARD OPERATOR Inhaled Oxygen Concentration - - Weight 128.8 kg (284 lb) 08/08/2023 10:28 AM ELECTRIC SHIPYARD OPERATOR Height 162.6 cm (5' 4 ) [...] Recently Relevant to Health Maintenance Insurance MEDICARE [facility] Care Teams Sample Washer Relationship Specialty Start Date End Date Aura Livingston FNP [address] [place] [id number] PCP - General Nurse Practitioner Family 07/24/23
--- OUTSIDE RECORDS SUMMARY | 2024-10-24 00:26 | XMS_ITS | Continuity of Care Document ---
Author Organization [facility] Address [address] [place] [address] Phone Care Team Providers Care Construction Skills Teacher Name Role Phone Loc Schilling MD Unavailable Unavailable Procedures Procedure Date Echocardiography, transthoracic, real-ti me with im Advance Directives Directive Yes / No Effective Date File Name No Information Encounters Encounter Description Practice Location Reason(s) For Visit Diagnoses Date Provider Providers Copied on Encounter [facility], [address], [place], [place], [id number], [place] tel:[phone] [facility] Inpt No Information 3 Tonie Monterroso. [address] , [place], [place], [id number] , [place]. tel:[phone] Referring Provider: Shaheed Jernigan, [address], [place], [address]. tel:[phone] Family History Family Member Type Diagnosis Age At Onset No Information Payers Payer name Insurance type Covered constitution party ID Authoriza tion(s) Medicare Claims Admin [id number] Wps [employer] Life [id number] Social History Type Description Quantity Date Captured Comments Sex Female Smoking Status No Information Chief Complaint And Reason For Visit No Information History Of Present Illness Encounter Date Complaint History Of Prese nt Illness No Information Instructions Date Instruction Additional Infor mation No Information Assessments Type Assessment Date No Information
--- OUTSIDE RECORDS SUMMARY | 2024-10-24 00:26 | XMS_ITS | Clinical Summary ---
Author Organization [facility] Care Team Providers Care Local Operator Name Role Phone Unavailable Primary Care Provider Unavailabl e Social History Tobacco Use Types Packs/Day Years Used Date Smoking Tobacco: Never Assessed Comments Unknown Sex and Gender Information Value Date Recorded Sex Assigned at Not on file Legal Sex Female 3:09 PM DOPSTER Gender Identity Not on file Sexual Orientation [...]
--- OUTSIDE RECORDS SUMMARY | 2024-10-24 00:26 | XMS_ITS | Continuity of Care Document ---
Author Name [facility] Organization [facility] Care Team Providers Care Lock Plater Name Role Phone [facility] Unavailable Unavailable Medications Combined list of outpatient medications from Department of Defense and [facility] Affairs facilities.Medications provided include 1) outpatient medications from the last 15 months, and 2) patient-reported medications. Medication Details Route Status Patient Instructions Prescription Expires Prescription Number Last Dispense Date Ordering Provider Order Date Order Qty Source allopurinol 300 mg tablet See Instruct ions, # 90 EA, 1 total refill(s ), Hard Stop Discont inued 10/23/2024 5 2024 90.0 Ambulat ory Pharmac y allopurinol 300 mg tablet 600 mg, Oral, Daily, # 90 EA, 1 total refill(s ), Hard Stop Oral (given by mouth) Discont inued 06/03/2024 4 2023 90.0 Ambulat ory Pharmac y allopurinol 300 mg tablet See Instruct ions, Oral, # 90 EA, 1 total refill(s ), Soft Stop Oral (given by mouth) Ordered 5 2024 90.0 Ambulat ory Pharmac y allopurinol 300 mg tablet 300 mg, Oral, Daily, # 90 EA, 1 total refill(s ), Hard Stop Oral (given by mouth) Discont inued 11/20/2023 3 2023 90.0 Ambulat ory Pharmac y amoxicillin 500 mg capsule 2000 mg, Oral, # 8 EA, 1 total refill(s ), Hard Stop Oral (given by mouth) Ordered 02/17/2025 5 2024 8.0 Ambulat ory Pharmac y aspirin 81 mg oral delayed release tablet TAKE ONE TABLET DAILY, # 90 EA, 1 total refill(s ), Acute Complet ed 01/17/2023 2 2022 90.0 Ambulat ory Pharmac y aspirin EC 81 mg tablet See Instruct ions, # 90 EA, 1 total refill(s ), Hard Stop Discont inued 10/23/2024 5 2024 90.0 Ambulat ory Pharmac y aspirin EC 81 mg tablet See Instruct ions, Oral, # 90 EA, 1 total refill(s ), Soft Stop Oral (given by mouth) Ordered 5 2024 90.0 Ambulat ory Pharmac y aspirin EC 81 mg tablet 81 mg, Oral, Daily, # 90 EA, 1 total refill(s ), Hard Stop Oral (given by mouth) Complet ed 03/05/2024 3 2023 90.0 Ambulat ory Pharmac y aspirin EC 81 mg tablet 81 mg, Oral, Daily, # 90 EA, 1 total refill(s ), Hard Stop Oral (given by mouth) Discont inued 06/03/2024 4 2023 90.0 Ambulat ory Pharmac y atenolol 25 mg tablet See Instruct ions, # 90 EA, 1 total refill(s ), Hard Stop Discont inued 10/23/2024 5 2024 90.0 Ambulat ory Pharmac y atenolol 25 mg tablet 25 mg, Oral, Daily, # 90 EA, 1 total refill(s ), Hard Stop Oral (given by mouth) Discont inued 06/03/2024 4 2023 90.0 Ambulat ory Pharmac y atenolol 25 mg tablet See Instruct ions, Oral, # 90 EA, 1 total refill(s ), Soft Stop Oral (given by mouth) Ordered 5 2024 90.0 Ambulat ory Pharmac y atenolol 25 mg tablet 25 mg, Oral, Daily, # 90 EA, 1 total refill(s ), Hard Stop Oral (given by mouth) Discont inued 11/20/2023 3 2023 90.0 Ambulat ory Pharmac y atorvastati n 80 mg tablet See Instruct ions, # 90 EA, 1 total refill(s ), Hard Stop Discont inued 10/23/2024 5 2024 90.0 Ambulat ory Pharmac y atorvastati n 80 mg tablet 80 mg, Oral, Daily, # 90 EA, 1 total refill(s ), Hard Stop Oral (given by mouth) Discont inued 06/03/2024 4 2023 90.0 Ambulat ory Pharmac y atorvastati n 80 mg tablet See Instruct ions, Oral, # 90 EA, 1 total refill(s ), Soft Stop Oral (given by mouth) Ordered 5 2024 90.0 Ambulat ory Pharmac y atorvastati n 80 mg tablet 80 mg, Oral, Daily, # 90 EA, 1 total refill(s ), Hard Stop Oral (given by mouth) Discont inued 11/20/2023 3 2023 90.0 Ambulat ory Pharmac y cetirizine 10 mg tablet See Instruct ions, # 90 EA, 1 total refill(s ), Hard Stop Ordered 05/20/2025 5 2024 90.0 Ambulat ory Pharmac y cetirizine 10 mg tablet 10 mg, Oral, Daily, # 90 EA, 1 total refill(s ), Hard Stop Oral (given by mouth) Discont inued 06/03/2024 4 2023 90.0 Ambulat ory Pharmac y cetirizine 10 mg tablet 10 mg, Oral, Daily, # 90 EA, 1 total refill(s ), Hard Stop Oral (given by mouth) Discont inued 11/20/2023 3 2023 90.0 Ambulat ory Pharmac y doxycycline hyclate 100 mg capsule 100 mg, Oral, BID, # 20 EA, 0 total refill(s ), Hard Stop Oral (given by mouth) Complet ed 06/10/2024 3 2023 20.0 Ambulat ory Pharmac y dulaglutide 3 mg/0.5 mL pen [4EA=2mL] See Instruct ions, # 2 mL, 5 total refill(s ), Hard Stop Notes: refriger ate Discont inued 10/23/2024 5 2024 2.0 Ambulat ory Pharmac y dulaglutide 3 mg/0.5 mL pen [4EA=2mL] See Instruct ions, # 2 mL, 5 total refill(s ), Soft Stop Notes: refriger ate Ordered 5 2024 2.0 Ambulat ory Pharmac y ergocalcife rol 1.25 mg (50,000 intl units) oral capsule TAKE ONE CAPSULE BY MOUTH EVERY WEEK DIRECTED , # 12 EA, 1 total refill(s ), Acute Complet ed 07/10/2023 2 2022 12.0 Ambulat ory Pharmac y ergocalcife rol 1.25 mg (50,000 units) capsule See Instruct ions, # 13 EA, 2 total refill(s ), Hard Stop Discont inued 10/23/2024 5 2024 13.0 Ambulat ory Pharmac y ergocalcife rol 1.25 mg (50,000 units) capsule See Instruct ions, Oral, # 13 EA, 2 total refill(s ), Hard Stop Oral (given by mouth) Discont inued 06/03/2024 4 2023 13.0 Ambulat ory Pharmac y ergocalcife rol 1.25 mg (50,000 units) capsule See Instruct ions, Oral, # 13 EA, 2 total refill(s ), Soft Stop Oral (given by mouth) Ordered 5 2024 13.0 Ambulat ory Pharmac y ergocalcife rol 1.25 mg (50,000 units) capsule See Instruct ions, Oral, # 13 EA, 1 total refill(s ), Hard Stop Oral (given by mouth) Discont inued 11/20/2023 3 2023 13.0 Ambulat ory Pharmac y fluconazole 150 mg tablet See Instruct ions, # 2 EA, 0 total refill(s ), Hard Stop Complet ed 07/11/2024 4 2023 2.0 Ambulat ory Pharmac y fluticasone 50 mcg/inh nasal spray [16g] See Instruct ions, As Needed for Allergy Symptoms ; administ er into each nostril, # 48 g, 3 total refill(s ), Soft Stop Ordered 5 2024 48.0 Ambulat ory Pharmac y freestyle lite (glucose) test strip [50EA] See dose instruct ions in comments , # 100 EA, 2 total refill(s ), Acute Complet ed 07/10/2023 3 2022 100.0 Ambulat ory Pharmac y freestyle lite (glucose) test strip [50EA] See Instruct ions, # 100 EA, 3 total refill(s ), Hard Stop Ordered 08/13/2025 5 2024 100.0 Ambulat ory Pharmac y furosemide 40 mg oral tablet TAKE ONE TABLET BY MOUTH EVERY MORNING, # 90 EA, 1 total refill(s ), Acute Complet ed 07/10/2023 2 2022 90.0 Ambulat ory Pharmac y furosemide 40 mg tablet See Instruct ions, # 90 EA, 1 total refill(s ), Hard Stop Discont inued 10/23/2024 5 2024 90.0 Ambulat ory Pharmac y furosemide 40 mg tablet 40 mg, Oral, every morning, # 90 EA, 1 total refill(s ), Hard Stop Oral (given by mouth) Discont inued 06/03/2024 4 2023 90.0 Ambulat ory Pharmac y furosemide 40 mg tablet See Instruct ions, Oral, # 90 EA, 1 total refill(s ), Soft Stop Oral (given by mouth) Ordered 5 2024 90.0 Ambulat ory Pharmac y furosemide 40 mg tablet See Instruct ions, Oral, # 90 EA, 1 total refill(s ), Hard Stop Oral (given by mouth) Discont inued 11/20/2023 3 2023 90.0 Ambulat ory Pharmac y glimepiride 1 mg tablet See Instruct ions, # 180 EA, 1 total refill(s ), Hard Stop Discont inued 10/23/2024 5 2024 180.0 Ambulat ory Pharmac y glimepiride 1 mg tablet 1 mg, Oral, BID, # 180 EA, 1 total refill(s ), Hard Stop Oral (given by mouth) Discont inued 02/26/2024 4 2023 180.0 Ambulat ory Pharmac y glimepiride 1 mg tablet See Instruct ions, Oral, # 270 EA, 1 total refill(s ), Soft Stop Oral (given by mouth) Ordered 5 2024 270.0 Ambulat ory Pharmac y glimepiride 1 mg tablet 1 mg, Oral, every morning, # 90 EA, 1 total refill(s ), Hard Stop Oral (given by mouth) Discont inued 11/27/2023 4 2023 90.0 Ambulat ory Pharmac y glimepiride 1 mg tablet See Instruct ions, Oral, 0, # 90 EA, 1 total refill(s ), Hard Stop Oral (given by mouth) Discont inued 02/27/2023 3 2022 90.0 Ambulat ory Pharmac y glimepiride 1 mg tablet 1 mg, Oral, BID, # 180 EA, 0 total refill(s ), Hard Stop Oral (given by mouth) Discont inued 02/15/2024 4 2023 180.0 Ambulat ory Pharmac y glimepiride 1 mg tablet See Instruct ions, Oral, # 270 EA, 1 total refill(s ), Hard Stop Oral (given by mouth) Discont inued 10/23/2024 5 2024 270.0 Ambulat ory Pharmac y glimepiride 1 mg tablet 1 mg, Oral, every morning, # 90 EA, 0 total refill(s ), Hard Stop Oral (given by mouth) Discont inued 11/20/2023 4 2023 90.0 Ambulat ory Pharmac y glimepiride 2 mg oral tablet *NOTE DOSE* TAKE ONE-HALF TABLET BY MOUTH EVERY MORNING *ADMINIS TER WITH BREAKFAS T*, # 45 EA, 1 total refill(s ), Acute Discont inued 02/27/2023 2 2022 45.0 Ambulat ory Pharmac y glimepiride 2 mg tablet 2 mg, # 45 EA, 1 total refill(s ), Hard Stop Discont inued 11/20/2023 3 2023 45.0 Ambulat ory Pharmac y glucose test strip (freestyle lite) USE DAILY DIRECTED , # 100 EA, 3 total refill(s ), Acute Complet ed 01/17/2023 2 2022 100.0 Ambulat ory Pharmac y glucose test strip (freestyle lite) See Instruct ions, # 100 EA, 3 total refill(s ), Soft Stop Ordered 5 2024 100.0 Ambulat ory Pharmac y insulin glargine (Lantus SoloStar) 100 units/mL [3mL] See Instruct ions, SubCutan eous, 0, # 15 mL, 0 total refill(s ), Soft Stop SubCut aneous (under the skin) Ordered 5 2024 15.0 Ambulat ory Pharmac y Lantus SoloStar glargine 100 units/mL [3mL] 10 unit(s), SubCutan eous, every evening, # 15 mL, 0 total refill(s ), Hard Stop SubCut aneous (under the skin) Discont inued 10/23/2024 4 2024 15.0 Ambulat ory Pharmac y levothyroxi ne (Synthroid) 112 mcg tablet See Instruct ions, # 90 EA, 1 total refill(s ), Hard Stop Discont inued 10/23/2024 5 2024 90.0 Ambulat ory Pharmac y levothyroxi ne (Synthroid) 112 mcg tablet 112 mcg, Oral, Daily, # 90 EA, 1 total refill(s ), Hard Stop Oral (given by mouth) Discont inued 06/03/2024 4 2023 90.0 Ambulat ory Pharmac y levothyroxi ne (Synthroid) 112 mcg tablet See Instruct ions, Oral, # 90 EA, 1 total refill(s ), Soft Stop Oral (given by mouth) Ordered 5 2024 90.0 Ambulat ory Pharmac y levothyroxi ne (Synthroid) 112 mcg tablet 112 mcg, Oral, Daily, # 90 EA, 1 total refill(s ), Hard Stop Oral (given by mouth) Discont inued 11/20/2023 3 2023 90.0 Ambulat ory Pharmac y needle pen 32g 6mm See Instruct ions, # 100 EA, 1 total refill(s ), Hard Stop Ordered 07/16/2025 5 2024 100.0 Ambulat ory Pharmac y nitrofurant oin macrocrysta l monohydrate 100 mg cap See Instruct ions, Oral, # 10 EA, 0 total refill(s ), Hard Stop Oral (given by mouth) Complet ed 07/14/2024 4 2023 10.0 Ambulat ory Pharmac y pen needle 32g 4mm See Instruct ions, # 100 EA, 1 total refill(s ), Soft Stop Ordered 5 2024 100.0 Ambulat ory Pharmac y pregabalin 75 mg capsule See Instruct ions, # 180 EA, 1 total refill(s ), Hard Stop Discont inued 10/23/2024 5 2024 180.0 Ambulat ory Pharmac y pregabalin 75 mg capsule 75 mg, Oral, BID, # 180 EA, 1 total refill(s ), Hard Stop Oral (given by mouth) Complet ed 05/17/2024 4 2023 180.0 Ambulat ory Pharmac y pregabalin 75 mg capsule See Instruct ions, Oral, # 180 EA, 1 total refill(s ), Soft Stop Oral (given by mouth) Ordered 5 2024 180.0 Ambulat ory Pharmac y pregabalin 75 mg capsule 75 mg, Oral, BID, # 180 EA, 1 total refill(s ), Hard Stop Oral (given by mouth) Complet ed 09/02/2023 3 2023 180.0 Ambulat ory Pharmac y pregabalin 75 mg capsule 75 mg, Oral, BID, # 180 EA, 1 total refill(s ), Hard Stop Oral (given by mouth) Discont inued 11/20/2023 4 2023 180.0 Ambulat ory Pharmac y traMADol 50 mg tablet 50 mg, Oral, every 12 hr, # 180 EA, 0 total refill(s ), Hard Stop Oral (given by mouth) Complet ed 09/02/2023 3 2023 180.0 Ambulat ory Pharmac y Trulicity Pen 1.5 mg/0.5 mL [4EA=2mL] See Instruct ions, 0, # 2 mL, 5 total refill(s ), Hard Stop Discont inued 07/31/2023 3 2022 2.0 Ambulat ory Pharmac y Trulicity Pen 1.5 mg/0.5 mL [4EA=2mL] See dose instruct ions in comments , # 2 mL, 0 total refill(s ), Acute Discont inued 02/27/2023 3 2022 2.0 Ambulat ory Pharmac y Trulicity Pen 3 mg/0.5 mL [4EA=2mL] See Instruct ions, # 2 mL, 5 total refill(s ), Hard Stop Notes: refriger ate Discont inued 05/08/2024 4 2023 2.0 Ambulat ory Pharmac y Trulicity Pen 3 mg/0.5 mL [4EA=2mL] See Instruct ions, SubCutan eous, every week, # 2 mL, 0 total refill(s ), Hard Stop Notes: refriger ate SubCut aneous (under the skin) Discont inued 07/26/2023 3 2022 2.0 Ambulat ory Pharmac y Trulicity Pen 3 mg/0.5 mL [4EA=2mL] See Instruct ions, SubCutan eous, # 2 mL, 5 total refill(s ), Hard Stop Notes: refriger ate SubCut aneous (under the skin) Discont inued 06/03/2024 4 2023 2.0 Ambulat ory Pharmac y Trulicity Pen 3 mg/0.5 mL [4EA=2mL] See Instruct ions, 0, # 2 mL, 5 total refill(s ), Hard Stop Notes: refriger ate Discont inued 11/20/2023 3 2023 2.0 Ambulat ory Pharmac y Procedures Combined list of: 1) Procedures from Department of [facility] Affairs facilities [facility], not all [place] non-surgical procedures are included; 2) All procedures from the Department of Defense facilities. Procedure Procedure Type Code Date Perfomer Comments Sourc e No data available for this section Ambulatory P harmacy Assessment and Plan Combined list of future care activities from Department of Defense and Veterans Affairs facilities (e.g., assessment and plan notes, appointments, orders, and referrals). Additional future care activities may be listed in the Plan of Care section. Result Assessment and Plan Date Source Assessment and Plan No data available for this section 10/24/2024 Ambulatory Pharmacy Functional Status Combined list of recent functional and cognitive assessments recorded at [facility] [place] Functional Ransom Measurement (FIM) Scale: 1 = Total Assistance (Subject = 0% +), 2 = Maximal Assistance (Subject = 25% +), 3 = Moderate Assistance (Subject = 50% +), 4 = Minimal Assistance (Subject = 75% +), 5 = Supervision, 6 = Modified Ransom (Device), 7 = Complete Ransom (Timely, Safely). Assessment Date/Time Source Assessment Type Assessment Skill Assessment Score Assessment Details No data available for this section
--- OUTSIDE RECORDS SUMMARY | 2024-10-24 00:26 | XMS_ITS | Clinical Summary ---
Author Organization [facility] Address [address] [place] [id number] Phone Care Team Providers Care Newspaper Delivery Driver Name Role Phone Phoebe Brock MD Primary Care Provider [phone] Allergies Active Allergy Reactions Criticality Noted Date Comments Iodine 03/27/2019 Other reaction(s): Hives Other 03/26/2018 Other reaction(s): Unknown Rosuvastatin 03/26/2018 Other reaction(s): Unknown Ezetimibe Rash Low Medications Medication Sig Dispensed Refills Start Date End Date Status diphenhydrAMINE (BENADRYL) 25 MG capsule 1 as needed 0 02/12/2017 Active Coenzyme Q10 (COQ10) 100 MG capsule 1 capsule (100 mg) orally daily with a meal 0 05/22/2016 Active traMADol (ULTRAM) 50 MG tablet 1 as needed for pain 0 06/18/2017 Acti ve pregabalin (LYRICA) 75 MG capsule 01/18/2015 Active ergocalciferol (VITAMIN D-2) 02165 units capsule 1 weekly 0 05/22/2016 Active levothyroxine (SYNTHROID, LEVOTHROID) 112 MCG tablet 01/18/2015 Active atorvastatin (LIPITOR) 80 MG tablet 01/18/2015 Active SITagliptin-metFORMI N HCl ER (JANUMET XR) 100-1000 MG tablet sustained-release 24 hour 01/18/2015 Active Cetirizine HCl (ZyrTEC ALLERGY) 10 MG capsule 1 capsule (10 mg) orally daily as needed 0 02/12/2017 Active aspirin (ASPIRIN ADULT LOW DOSE) 81 MG EC tablet 1 tablet (81 mg) orally daily 0 10/09/2016 Active fluticasone (FLONASE) 50 MCG/ACT nasal spray Administer 1 spray into affected nostril(s) daily Active furosemide (LASIX) 20 MG tablet Take 20 mg by mouth Every other day, extra if swollen Active atenolol (TENORMIN) 25 MG tablet Take 25 mg by mouth 1 (one) time each day Active allopurinol (ZYLOPRIM) 300 MG tablet Take 300 mg by mouth daily Active glimepiride (AMARYL) 1 MG tablet Take 1 mg by mouth 1 (one) time each day before breakfast Active Active Problems Problem Noted Date Diagnosed Date Stage 3a chronic kidney disease 06/17/2018 Monoclonal gammopathy of uncertain significance 03/21/2018 Type 2 diabetes mellitus without complication Hyperlipidemia 01/18/2015 Essential (primary) hypertension 01/18/2015 Pain in joint 01/18/2015 Immunizations Name Administration Dates Next Due DTaP, Unspecified 11/09/2020 Influenza LAIV (Nasal) 05/22/2012 Family History Medical History Relation Comments Coronary arteriosclerosis Father Coronary arteriosclerosis Mother Kidney disease Neg Hx Kidney stone Neg Hx Relation Status Comments Father Mother Social History Tobacco Use Types Packs/Day Years Used Date Smoking Tobacco: Never Smokeless Tobacco: Never Alcohol Use Standard Drinks/Week Comments Not Currently 0 (1 standard drink = 0.6 oz pur e alcohol) Sex and Gender Information Value Date Recorded Sex Assigned at Not on file Gender Identity Not on file Sexual Orientation Not on file Last Filed Vital Signs Vital Sign Reading Time Taken Comments Blood Pressure 114/70 05/10/2022 1:19 PM CDT Pulse 72 05/10/2022 1:19 PM CDT Temperature 36.2 C (97.2 F) 05/10/2022 1:19 PM CDT Respiratory Rate - - Oxygen Saturation - - Inhaled Oxygen Concentration - - Weight 129 kg (285 lb) 05/10/2022 1:19 PM CDT Height 162.6 cm (5' 4 ) 05/10/2022 1:19 PM CDT Body Mass Index 48.92 05/10/2022 1:19 PM CDT Plan of Treatment Health Maintenance Due Date Last Done Comments Pneumococcal PPSV23/PCV13 65 + Years / High and Highest Risk (1 of 4 - PCV) 11/25/1961 Diabetic Foot Exam 11/25/1965 Ophthalmology Exam 11/25/1965 Influenza Vaccine (#1) 2024 05/22/2012 Care Teams Newspaper Delivery Driver Relationship Specialty Start Date End Date Phoebe Brock MD [address] [place] [id number] PCP - General 05/09/19
[2024-10-24 07:48] VITALS: BP 150/80; PULSE 95; RESP 18; TEMP 36.1; O2SAT 97; BMI 49.0
[2024-10-24] MEDS: LACTATED RINGERS 1,000 ML 150 ML IV CONT (08:02)
--- NOTE | 2024-10-24 08:45 | WPDANESEPPF ---
Anes - Initial Pre Proc Eval Procedure: Operation Date: 10/24/24 08:45 Proposed Procedures p Colonoscopy - Eagle Pascual MD Date/Time: 10/24/24 08:45 Surgeon: Eagle Pascual MD Pre Op Diagnosis: Personal hx of colon polyps Patient Data Age: 68 Gender: F Height: 1.63 m Weight: 129.6 kg Last Vital Signs Temp 97 F L 10/24/24 07:48 Pulse 95 10/24/24 07:48 Resp 18 10/24/24 07:48 BP 150/80 H 10/24/24 07:48 Pulse Ox 97 10/24/24 07:48 O2 Del Method Room Air 10/24/24 07:48 Allergies Allergy/AdvReac Type Severity Reaction Status Date / Time ezetimibe Allergy Intermediate Rash Verified 10/24/24 07:46 iodine Allergy Intermediate Hives Verified 10/24/24 07:46 rosuvastatin Allergy Intermediate Heartburn Verified 10/24/24 07:46 empagliflozin (From AdvReac Unknown Verified 10/24/24 07:46 Jardiance) Contrast Media Allergy Intermediate HIVES Uncoded 10/24/24 07:46 Home Medications ?Medication ?Instructions ?Recorded ?Confirmed ?Type coenzyme Q10 100 mg capsule 100 mg PO DAILY 02/12/20 10/24/24 History tramadol 50 mg tablet 50 mg PO Q12H PRN pain #180 tabs 03/06/23 10/20/24 Rx insulin glargine 100 unit/mL (3 18 unit (0.18 mL) subcut QPM #15 mL 10/13/24 10/24/24 Rx mL) subcutaneous pen (Lantus Solostar U-100 Insulin) allopurinol 300 mg tablet 300 mg PO DAILY #90 tabs 10/14/24 10/24/24 Rx aspirin 81 mg tablet,delayed 81 mg PO DAILY #90 tabs 10/14/24 10/24/24 Rx release (Chidi Low Dose Aspirin) atenolol 25 mg tablet 25 mg PO DAILY #90 tabs 10/14/24 10/24/24 Rx atorvastatin 80 mg tablet (Lipitor) 80 mg PO DAILY #90 tabs 10/14/24 10/24/24 Rx blood sugar diagnostic (FreeStyle #100 ea 10/14/24 Rx Lite Strips) dulaglutide 3 mg/0.5 mL 3 mg (0.5 mL) subcut WEEKLY #2 mL 10/14/24 10/24/24 Rx subcutaneous pen injector (Trulicity) ergocalciferol (vitamin D2) 1,250 1,250 mcg PO WEEKLY #13 caps 10/14/24 10/24/24 Rx mcg (50,000 unit) capsule (Vitamin D2) fluticasone propionate 50 2 spray intranasal DAILY PRN 10/14/24 10/24/24 Rx mcg/actuation nasal Allergy Symptoms #48 grams spray,suspension furosemide 40 mg tablet (Lasix) 40 mg PO QAM #90 tabs 10/14/24 10/24/24 Rx glimepiride 1 mg tablet See Rx Instructions PO .COMPLEX 10/14/24 10/24/24 Rx #270 tabs levothyroxine 112 mcg tablet 112 mcg PO DAILY #90 tabs 10/14/24 10/24/24 Rx pen needle, diabetic 32 gauge x #100 ea 10/14/24 Rx 5/16 pregabalin 75 mg capsule (Lyrica) 75 mg PO BID #180 caps 10/14/24 10/24/24 Rx cetirizine 10 mg tablet 10 mg PO DAILY #90 tabs 10/23/24 10/24/24 Rx Patient hx anesthesia problems: none Family hx anesthesia problems: none Results Review: All pre-operative results and documents have been reviewed as part of the pre-operative evaluation. [facility] Past Medical History Medical History Gout Generalized osteoarthritis of multiple sites Rheumatoid factor positive (~2019) History of osteomyelitis Hypertension Arthritis Kidney disease Diabetes IBS (irritable bowel syndrome) Headache Allergies Surgical History Surgical History History of total left knee replacement (TKR) History of total right knee replacement (TKR) Acute carpal tunnel syndrome of left wrist History of laminectomy Ankle osteomyelitis, left Carpal tunnel syndrome History of hysterectomy Family History Family History Mother Family history of hyperthyroidism Other Cerebrovascular accident Diabetes mellitus Family history of arthritis Family history of cardiovascular disease Family history of congestive heart failure Family history of coronary artery disease Family history of glaucoma Family history of gout Family history of malignant neoplasm of male breast Family history of obesity Family history of thyroid disease Hypertension Social History Social History Social History: 07/22/24 Very confident with medical forms. Smoking status: Never smoker Second hand tobacco smoke exposure: No Alcohol intake: never Substance use: never Substance use type: does not use Do You Feel Safe in your Home?: Yes Lack of Transportation: No Lack of Food: Never True Current Housing: I Have Housing Concerned About Future Housing: No Difficulty Paying Gas/Electric Bills: No Difficulty Paying for Meds: No Currently Unemployed: No Education: Bachelor's Degree Difficulty w/ Childcare or Family Care: No Living arrangements: with family Occupation/Education: retired Gender identity (if verbalized by the patient): Female Spiritual care concerns: No Agree to blood products: Yes Anes - Eval Final PreProcedure Day of Procedure 10/24/24 08:45 Patient weight: normal and super morbidly obese Heart: regular rate and rhythm Lungs: clear to auscultation Airway: Mallampati scale class II Neurological: alert and oriented Last oral intake: >/= 8 hours ASA classification: III Emergent: no Anesthetic plan: proceed Anesthesia type and monitoring: general GIVS and standard monitoring Results Review: All pre-operative results and documents have been reviewed as part of the pre-operative evaluation. Informed Consent: The patient's anesthetic plan and its attendant risks and benefits were discussed with the patient/family/POA. Questions were solicited and answers provided to the satisfaction of the patient/family/POA.
[2024-10-24 09:07] VITALS: BP 112/64; PULSE 86; RESP 22; O2SAT 93
[2024-10-24 09:17] VITALS: BP 106/66; PULSE 85; RESP 21; O2SAT 94
[2024-10-24 09:27] VITALS: BP 112/73; PULSE 82; RESP 19; O2SAT 94
[2024-10-24 09:28] LABS: Glucose Point of Care 158 mg/dl (65-105)
== END 2024-10-24 09:42 | disposition home or self-care (01) ==
PROVIDERS: PCP Nurse Practitioner Family; Visit Provider Internal Medicine Gastroenterology
PROC: 0DJD8ZZ Inspection of Lower Intestinal Tract, Via Natural or Artificial Opening Endoscopic (ICD-10-PCS; CPT 45378; principal; 2024-10-24 08:45)
DX: Z12.11 Encounter for screening for malignant neoplasm of colon (principal); D12.3 Benign neoplasm of transverse colon; K63.5 Polyp of colon; K64.8 Other hemorrhoids; I10 Essential (primary) hypertension; E11.9 Type 2 diabetes mellitus without complications; K58.9 Irritable bowel syndrome, unspecified; M15.0 Primary generalized (osteo)arthritis; N28.9 Disorder of kidney and ureter, unspecified; E66.01 Morbid (severe) obesity due to excess calories; Z68.42 Body mass index [BMI] 45.0-49.9, adult; Z79.891 Long term (current) use of opiate analgesic; Z79.4 Long term (current) use of insulin; Z79.82 Long term (current) use of aspirin; Z79.85 Long-term (current) use of injectable non-insulin antidiabetic drugs; Z79.84 Long term (current) use of oral hypoglycemic drugs; Z98.890 Other specified postprocedural states; Z87.39 Personal history of other diseases of the musculoskeletal system and connective tissue; Z80.3 Family history of malignant neoplasm of breast; Z82.49 Family history of ischemic heart disease and other diseases of the circulatory system
CPT/HCPCS: 45380; 45385; 82948; 88305; J2003; J2704; J7120

== ENCOUNTER 2024-10-29 09:07 | Outpatient (CLI) | payer MEDICARE, OTHER, SELFPAY ==
--- NOTE | ~2024-10-29 | DEXA_ITS ---
Bone Density Report Name: JC HORTON Age: 68 Sex: Female Ethnicity: White Date of : 1955 Indication: hyperparathyroidism; height loss; prior fracture; hysterectomy; Referring Provider: GALDINO ARGUETA Study: Bone densitometry was performed. Exam Date: October 29, 2024 Accession number: [id number] Bone Density: Region BMD T-score Z-score Classification AP Spine(L1, L2, L4) 1.169 1.2 3.2 Normal Femoral Neck (Left) 0.660 -1.7 0.0 Osteopenia Total Hip (Left) 0.849 -0.8 0.7 Normal Femoral Neck (Right) 0.666 -1.6 0.1 Osteopenia Total Hip (Right) 0.897 -0.4 1.1 Normal Total Hip Mean 0.873 -0.6 0.9 Normal World Health Organization criteria for BMD impression classify patients as: Normal (T-score at or above -1.0), Osteopenia (T-score between -1.0 and -2.5), or Osteoporosis (T-score at or below -2.5). 10-year Fracture Risk(1): Major Osteoporotic Fracture 14% Hip Fracture 1.8% Reported Risk Factors: [place] (), Neck BMD=0.660, BMI=47.3, previous fracture Input outside FRAX(R) limits. Adjusted to:Oqbdza=986 kg (1) FRAX(R) Version 3.08. Fracture probability calculated for an untreated patient. Fracture probability may be lower if the patient has received treatment. Previous Exams: Region Exam Age BMD T-score BMD Change BMD Change Date g/cm2 vs Baseline vs Previous AP Spine (L1-L2,L4) 10/29/2024 68 1.169 1.2 0.037 (3.3%)# 0.037 (3.3%)# 07/03/2018 62 1.132 0.9 Total Hip(Left) 10/29/2024 68 0.849 -0.8 -0.118 (-12.2% -0.050 (-5.5%) 06/19/2022 66 0.898 -0.4 -0.068 (-7.0%) -0.068 (-7.0%) 07/03/2018 62 0.966 0.2 Total Hip(Right) 10/29/2024 68 0.897 -0.4 -0.113 (-11.2% 0.036 (4.2%)# 06/19/2022 66 0.860 -0.7 -0.150 (-14.8% -0.150 (-14.8% 07/03/2018 62 1.010 0.6 *Denotes significance at 95% confidence level, LSC for AP Spine = 0.022 g/cm2, LSC for Total Hip = 0.027 g/cm2 # Denotes dissimilar scan types or analysis methods Clinical Information Provided by Patient: Has had a low trauma fracture Has used the following medications: Vitamin D Has the following medical conditions: Hyperparathyroidism, Hysterectomy Patient maximum height was 65 Menopause Age: 45 No regular weight bearing exercise Does not regularly consume dairy products Onset of menses at age 12 Number of children 1 Impression: The patient has low bone mass, based on the Left Femoral Neck T-score. The patient has an estimated ten-year risk of hip fracture of 1.8% and an estimated ten-year risk of major fracture of 14%, based on the WHO FRAX algorithm. The patient has risk factors, including: previous fracture. No significant bone loss was observed. Discussion: BONE DENSITY IS LOW AT ONE OR MORE SKELETAL SITES. This patient's lowest T-score is low at one or more skeletal sites. It meets the World Health Organization's (WHO) criteria for ?low bone mass? (T-score between -1.0 and -2.5). The patient's 10-year risk of fracture as calculated by FRAX is less than the threshold where pharmacological therapy is recommended by the National Osteoporosis Foundation (NOF). However, all treatment decisions require clinical judgment and consideration of individual patient factors, including patient preferences, comorbidities, previous drug use, risk factors not captured in the FRAX model (e.g., frailty, falls, vitamin D deficiency, increased bone turnover, interval significant decline in bone density) and possible under or overestimation of fracture risk by FRAX. The patient should follow a healthful lifestyle (good nutrition with adequate calcium and vitamin D, and appropriate weight-bearing exercise). Follow-Up: Consider repeating this study in 2 to 3 years to reassess this patient's status, or sooner if there is some new clinical indication. Reported by: NOEMI on 10/29/2024 9:57:00 AM. Reviewed, dictated and finalized at location [facility]
--- OUTSIDE RECORDS SUMMARY | 2024-10-29 09:42 | XMS_ITS | Continuity of Care Document ---
Author Organization [facility] Address [address] [place] [address] Phone Care Team Providers Care Tenderizer Tender Name Role Phone Loc Schilling MD Unavailable Unavailable Procedures Procedure Date Echocardiography, transthoracic, real-ti me with im Advance Directives Directive Yes / No Effective Date File Name No Information Encounters Encounter Description Practice Location Reason(s) For Visit Diagnoses Date Provider Providers Copied on Encounter [facility], [address], [place], [place], [id number], [place] tel:[phone] [facility] In[facility] No Information 3 Tonie Monterroso. [address] , [place], [place], [id number] , [place]. tel:[phone] Referring Provider: Shaheed Jernigan, [address], [place], [address]. tel:[phone] Family History Family Member Type Diagnosis Age At Onset No Information Payers Payer name Insurance type Covered libertarian ID Authoriza tion(s) Medicare Claims Admin [id number] [employer] [id number] Social History Type Description Quantity Date Captured Comments Sex Female Smoking Status No Information Chief Complaint And Reason For Visit No Information History Of Present Illness Encounter Date Complaint History Of Prese nt Illness No Information Instructions Date Instruction Additional Infor mation No Information Assessments Type Assessment Date No Information
--- OUTSIDE RECORDS SUMMARY | 2024-10-29 09:42 | XMS_ITS | Clinical Summary ---
Author Organization [facility] Address [address] [place] [address] Care Team Providers Care Women'S Basketball Coach Name Role Phone Aura Livingston [facility] Primary Care Provider [phone] Allergies Active Allergy Reactions Criticality Noted Date [...] capsule 02/12/2017 Activ e vitamin D2, ergocalciferol, 43934 UNITS capsule 05/22/2016 Active febuxostat (ULORIC) 40 [...] Type 2 diabetes mellitus wit hout complication ([facility]) 01/18/2015 Immunizations Name Administration Dates Next Due [...] Comments Blood Pressure 107/74 08/08/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 Pulse 96 08/08/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 Temperature - - Respiratory Rate 16 03/15/2022 2:00 PM CDT Oxygen Saturation 93% 08/08/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 Inhaled Oxygen Concentration - - Weight 128.8 kg (284 lb) 08/08/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 Height 162.6 cm (5' 4 ) 03/23/2022 [...] Recently Relevant to Health Maintenance Insurance MEDICARE [facility] Care Teams Women'S Basketball Coach Relationship Specialty Start Date End Date Aura Livingston FNP [address] [place] [id number] PCP - General Nurse Practitioner Family 07/24/23
--- OUTSIDE RECORDS SUMMARY | 2024-10-29 09:42 | XMS_ITS | Clinical Summary ---
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
--- OUTSIDE RECORDS SUMMARY | 2024-10-29 09:42 | XMS_ITS | Continuity of Care Document ---
Author Name [facility] Organization [facility] Care Team Providers Care Human Factors Specialist Name Role Phone [facility] Unavailable Unavailable Medications Combined list of outpatient [...] total refill(s ), Hard Stop Discont inued 10/24/2024 5 2024 90.0 Ambulat ory Pharmac y [...] [facility], not all [place] non-surgical procedures [...] Plan No data available for this section 10/29/2024 Ambulatory Pharmacy Functional Status Combined list of recent functional and cognitive assessments recorded at [facility] [place] Functional [place] Measurement (FIM) Scale: 1 = Total Assistance (Subject = 0% +), 2 = Maximal Assistance (Subject = 25% +), 3 = Moderate Assistance (Subject = 50% +), 4 = Minimal Assistance (Subject = 75% +), 5 = Supervision, 6 = Modified [place] (Device), 7 = Complete [place] (Timely, Safely). Assessment Date/Time Source Assessment Type Assessment Skill Assessment Score Assessment Details No data available for this section
--- OUTSIDE RECORDS SUMMARY | 2024-10-29 09:43 | XMS_ITS | Clinical Summary ---
Author Organization [facility] Address [address] [place] [id number] Phone Care Team Providers Care Boilermaker'S Assistant Name Role Phone Phoebe Brock MD Primary Care Provider [phone] Allergies Active Allergy Reactions Criticality Noted Date [...] MG capsule 01/18/2015 Active ergocalciferol (VITAMIN D-2) 58177 units capsule 1 weekly 0 05/22/2016 Active [...] Influenza Vaccine (#1) 2024 05/22/2012 Care Teams Boilermaker'S Assistant Relationship Specialty Start Date End Date Phoebe Brock MD [address] [place] [phone] PCP - General 05/09/19
== END 2024-10-29 09:08 | disposition home or self-care (01) ==
LOC: ANHIMG 09:08
PROVIDERS: PCP Nurse Practitioner Family; Visit Provider Nurse Practitioner Family
DX: N95.8 Other specified menopausal and perimenopausal disorders (principal); M85.852 Other specified disorders of bone density and structure, left thigh; M85.851 Other specified disorders of bone density and structure, right thigh
CPT/HCPCS: 77080